=== PATIENT | female | born 1950 | race Caucasian/White ===

== ENCOUNTER 2016-12-26 14:38 | Emergency (ER) | payer MEDICARE, BC ==
--- NOTE | 2016-12-26 16:43 | RAD ---
LEFT ANKLE THREE VIEWS 12/26/16 HISTORY: Fall. Left ankle injury. FINDINGS: There is 0.2 cm distal displacement of a 0.8 cm ossific fragment from the tip of the lateral malleol us. Overlying soft tissue swelling is apparent. Tiny ossific fragment adjacent to the medial malleol us is well corticated and may represent an old injury. Posterior malleolus is intact. IMPRESSION: Mildly displaced Fernando class A fracture of the left lateral malleolus with overlying soft tissue swe lling. POS: BAKARI
--- NOTE | 2016-12-26 16:47 | RAD ---
LEFT FOOT THREE VIEWS 12/26/16 HISTORY: Fall. Left foot and ankle injury. FINDINGS: A nondisplaced spiral fracture involves the shaft of the fifth metatarsal. Lisfranc joint alignment is anatomic. Mild osteophytosis is present throughout the foot. Fracture involving the tip of the la teral malleolus is not well demonstrated on this study but better detailed on dedicated ankle exam. There are degenerative changes throughout the foot. IMPRESSION: Left fifth metatarsal fracture. POS: BAKARI
== END 2016-12-26 16:05 | disposition home or self-care (01) ==
LOC: NAV ERS 14:38
DX: S82.62XA Displaced fracture of lateral malleolus of left fibula, initial encounter for closed fracture (principal); S92.355A Nondisplaced fracture of fifth metatarsal bone, left foot, initial encounter for closed fracture; E03.9 Hypothyroidism, unspecified; E78.5 Hyperlipidemia, unspecified; X50.9XXA Other and unspecified overexertion or strenuous movements or postures, initial encounter
CPT/HCPCS: 29515